=== PATIENT | female | born 1955 | race Caucasian/White ===

== ENCOUNTER 2016-10-04 06:20 | Day surgery (SDC) | payer OTHER, BC ==
[~2016-10-04] VITALS: Ht 172.7 cm; Wt 90.7 kg
[2016-10-04] MEDS ORDERED: LR 1,000 ML IV SCH (08:32)
[2016-10-04] MEDS ORDERED: MEPERIDINE HCL/PF 25 MG/ML DISP.SYRIN IVP PRN ×2 (08:45)
[2016-10-04] MEDS ORDERED: ONDANSETRON HCL 4 MG/2 ML VIAL IVP PRN ×2 (08:45→09:15)
[2016-10-04] MEDS ORDERED: KETOROLAC TROMETHAMINE 30 MG VIAL IVP PRN ×2 (08:45→09:15)
[2016-10-04] MEDS ORDERED: MORPHINE SULFATE 10 MG/ML VIAL IVP PRN (09:15)
[2016-10-04] MEDS ORDERED: HYDROmorphone 2 MG TAB PO PRN (09:15)
[2016-10-04 11:58] VITALS: BP_SYST 106
== END 2016-10-04 10:50 | disposition home or self-care (01) ==
LOC: SDS 06:20 → SMU 06:20 → SDS 10:50
PROVIDERS: ATTEND Specialist
DX: D07.1 Carcinoma in situ of vulva (principal); A63.0 Anogenital (venereal) warts; N90.7 Vulvar cyst; Z88.8 Allergy status to other drugs, medicaments and biological substances
CPT/HCPCS: 56501; 57061; 82962; 88305; J7120